=== PATIENT | male | born 1995 | race Caucasian/White ===

== ENCOUNTER 2016-09-10 15:52 | Emergency (ER) | payer OTHER ==
[~2016-09-10] VITALS: Ht 182.9 cm; Wt 111.1 kg
--- OUTSIDE RECORDS SUMMARY | 2016-09-10 15:58 | XMS REPORT ---
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 Name Role Phone Mahsa Falcon Unavailable Allergies No Known Allergies Problems Problem Type Condition Code Onset Dates Condition Status Problem Asthma 493.90 Active Problem Asthma J45.909 Active Medications Medication Code System Code Instructions Start Date End Date Status Dosage ProAir HFA [facility] [address]-33 108 (90 Base) MCG/ACT Inhalation every 4 hrs November 02, 2013 2 puffs as needed Advair Diskus [facility] [id number] 100-50 MCG/DOSE Inhalation Once a day October 22, 2014 1 puff Results No Known Results Summary Purpose [employer] Submission
[2016-09-10] MEDS ORDERED: LIDOCAINE 2% 20 ML (XYLOCAINE) VIAL INJ ONE (16:30)
--- NOTE | 2016-09-10 16:45 | ED Upper Extremity ---
General Chief Complaint: Laceration Stated Complaint: L HAND FINGER LAC Nursing Triage Note: PT TO ED 9 W/ C/O LACERATION TO 2ND ET 3RD DIG LT HAND ONSET TAX DIRECTOR AFTER WHILE CUTTING PLASTIC THE KNIFE SLIPPED. NO OTHER C/O VOICED Nursing Sepsis Screen: No Definite Risk Source: patient Exam Limitations: no limitations History of Present Illness Time seen by provider: 16:40 Initial Comments To ER with laceration to the dorsal aspect of the left pointer and middle finger that occurred while using a X-Acto knife just prior to arrival. He is right-hand dominant. Tetanus was updated 3 years ago. Onset: just prior to arrival Severity: mild Pain/Injury Location: left 2nd finger, left 3rd finger Method of Injury: unknown Allergies and Home Medications Allergies Coded Allergies: No Known Drug Allergies (Unverified , 09/10/16) Constitutional: see HPI EENTM: see HPI Respiratory: no symptoms reported Cardiovascular: no symptoms reported Genitourinary: no symptoms reported Musculoskeletal: see HPI Skin: see HPI Psychiatric/Neurological: No Symptoms Reported Past Llgaqlq-Pszvtc-Dgclvs Hx Patient Social History Alcohol Use: Occasionally Uses Recreational Drug Use: No Smoking Status: Never a Smoker Recent Foreign Travel: No Contact w/Someone Who Travel: No Recent Infectious Disease Expo: No Recent Hopitalizations: No Surgeries HX Surgeries: Yes (DENTAL) Respiratory Hx Respiratory Disorders: Yes Respiratory Disorders: Asthma Cardiovascular Hx Cardiac Disorders: No Neurological Hx Neurological Disorders: No Reproductive System Hx Reproductive Disorders: No Genitourinary Hx Genitourinary Disorders: No Gastrointestinal Hx Gastrointestinal Disorders: No Musculoskeletal Hx Musculoskeletal Disorders: No Endocrine Hx Endocrine Disorders: No HEENT HX ENT Disorders: No Cancer Hx Cancer: No Psychosocial Hx Psychiatric Problems: No Blood Transfusions Hx Blood Disorders: No Physical Exam Vital Signs Vital Sign - Last 12Hours 09/10/16 15:57 Temp 96.9 Pulse 84 Resp 20 B/P 172/96 Pulse Ox 98 O2 Delivery Room Air Capillary Refill : Less Than 3 Seconds General Appearance: WD/WN no apparent distress HEENT: PERRL/EOMI normal ENT inspection Neck: non-tender full range of motion Respiratory: no respiratory distress no accessory muscle use Shoulder: normal inspection non-tender Elbow/Forearm: normal inspection, non-tender Wrist: Yes normal inspection, Yes non-tender Hand: Left, laceration (0.5 semi-laceration to the dorsal aspect of the proximal phalanx left middle finger. This was to the subcutaneous tissues and one suture was placed. There is a 1.5 cm laceration to the middle phalanx dorsally left pointer finger with depth down to the extensor tendon but not through this extensor tendon. He is able to extend the finger including extending it against resistance.) Neurologic/Psychiatric: alert normal mood/affect oriented x 3 Skin: normal color warm/dry Laceration Repair : Wound Location: Upper Extremities Wound Length (cm): 2 Wound's Depth, Shape: sub Q Wound Explored: clean Irrigated w/ Saline (ccs): 30 Anesthesia: 1% Lidocaine Volume Anesthetic (ccs): 3 Suture: Ethlion Suture Size: 5-0 Number of Sutures: 7 Layer Closure?: 1 Number Deep Layer Sutures: 0 Progress Left middle finger was anesthetized locally with 0.5 mL of 1 percent lidocaine without epinephrine. A single simple a ruptured sutures size 5-0 Ethilon was placed. To the pointer finger there was a digital block done using 3 mL of plain 1 percent lidocaine without epinephrine. This area was then explored and irrigated with 30 mL of saline and scrubbed with chlorhexidine/saline solution. The skin surface and is tissues were then closed with 7 simple interrupted sutures size 5-0 Ethilon. A bulky dressing was then placed Progress/Results/Core Measures Results/Orders My Orders Orders-ZANA MORA APRN Lidocaine 2% Injection 20 Ml (Xylocaine (09/10/16 16:30) Medications Given in ED Current Medications Medications Dose Ordered Sig/Marcella Route Start Time Stop Time Status Last Admin Dose Admin Lidocaine HCl 2 ml ONCE ONCE INJ 09/10/16 16:30 09/10/16 16:31 DC 09/10/16 16:20 2 ML Vital Signs/I&O Vital Sign - Last 12Hours 09/10/16 15:57 Temp 96.9 Pulse 84 Resp 20 B/P 172/96 Pulse Ox 98 O2 Delivery Room Air Blood Pressure Mean: 121 Departure Impression Impression: Primary Impression: Finger laceration Qualified Code: S61.219A - Laceration without foreign body of unspecified finger without damage to nail, initial encounter Disposition: 01 HOME, SELF-CARE Condition: Stable Departure-Patient Inst. Decision time for Depature: 16:44 Referrals: [facility] (PCP/Family) Primary Care Physician Patient Instructions: Laceration Repair With Stitches (DC) Add. Discharge Instructions: 1. Return to ER for any concerns 2. Keep this clean dry and covered today and you may wash it gently allowing water to run over it tomorrow. However do not soak it in water such as a hot tub, bath tub, swimming pool until the stitches have been removed in 10 days. Return to the emergency room in 10 days to have the stitches removed at no charge. You do not need an appointment. Starting tomorrow you may remove our bandage and replace it with a simple Band-Aid. If blood soaks through the dressing that we have applied here in the emergency room, take the dressing off by unwrapping it, wash it gently under the sink and rewrap it with the dressing provided. All discharge instructions reviewed with patient and/or family. Voiced understanding. ZANA MORA APRN Sep 10, 2016 16:44
[2016-09-10 16:52] VITALS: BP 0/0
== END 2016-09-10 16:52 | disposition home or self-care (01) ==
LOC: ER 15:55
DX: S61.211A Laceration without foreign body of left index finger without damage to nail, initial encounter (principal); S61.213A Laceration without foreign body of left middle finger without damage to nail, initial encounter; W26.0XXA Contact with knife, initial encounter; Y99.8 Other external cause status
CPT/HCPCS: 12001

== ENCOUNTER 2016-09-21 10:49 | Emergency (ER) | payer OTHER ==
[~2016-09-21] VITALS: Ht 182.9 cm; Wt 111.1 kg
[2016-09-21 11:20] VITALS: BP 141/91
== END 2016-09-21 11:20 | disposition home or self-care (01) ==
LOC: EDUNIT# 10:49 → ER 10:51
DX: S61.211D Laceration without foreign body of left index finger without damage to nail, subsequent encounter (principal); S61.213D Laceration without foreign body of left middle finger without damage to nail, subsequent encounter